=== PATIENT | female | born 1970 | race Caucasian/White ===

== ENCOUNTER 2019-05-03 09:26 | Emergency (ER) | payer OTHER ==
[~2019-05-03] VITALS: Wt 72.0 kg
[2019-05-03 09:30] VITALS: BP 125/64; PULSE 71; RESP 18; Wt 72.0 kg
--- NOTE | 2019-05-03 10:26 | ERD ---
ER Documentation Chief Complaint Chief Complaint POST OP PAIN FOLLOWING BREAST AUGMENTATION SURG 04/23/19 HPI Patient is a 48-year-old female, who presents to the ER for concerns of wound w ound check after breast augmentation surgery as well as abdominal and thigh liposuction on 04-23-19. [facility] Patient states she had a drainage site in her back. No drainage tube was placed, patient only had an incision in her back. Patient states she was told by her surgeon Rosalio to "push on my stomach" which would allow for abdominal fluid to "drain out" of back incision. Patient states the back incision has closed up thus she is requesting that it be opened up here in the ER. Patient states she feels as if she is bloated. Patient denies pulling any drooling tubes or having any tubes placed. Patient denies any fevers, chills, nausea, vomiting, chest pain, shortness of breath or changes in bowel movement. Patient states her pain is controlled. ROS All systems reviewed and are negative except as per history of present illness. FmHx Family History: No diabetes Physical Exam Vitals Vital Signs Date Temp Pulse Resp B/P (MAP) Pulse Ox O2 O2 Flow FiO2 Time Delivery Rate 05/03/19 98.1 71 18 125/64 99 09:30 (84) Physical Exam GENERAL: Well-developed, well-nourished female. Appears in no acute distress. Speaking full sentences. HEAD: Normocephalic, atraumatic. EYES: Pupils are equally reactive bilaterally. EOMs grossly intact. No conjunctival erythema. ENT: Moist mucous membranes. No uvula deviation. No kissing tonsils. BREAST: Dressings in place. Dressings are clear clean and dry. NECK: Supple. No meningismus. Normal range of motion of the neck. LUNG: Clear to auscultation bilaterally. No rhonchi, wheezing, rales or coarse breath sounds. HEART: Regular rate and rhythm. No murmurs, rubs or gallops. ABDOMEN: Soft, nondistended. Nontender to palpation in all 4 quadrants. EXTREMITIES: Equal pulses bilaterally. No peripheral clubbing, cyanosis or edema. No unilateral leg swelling. NEUROLOGIC: Alert and oriented. Moving all four extremities without any difficulty. Normal speech. Steady gait. SKIN: Closed incision noted on the patient's back. No surrounding erythema, war mth, swelling. Procedures/MDM MEDICAL DECISION MAKING: Patient is a 48-year-old female who presents the ER for concerns of bloating after undergoing breast augmentation surgery as well as liposuction on 04-23-19.. Vital signs were reviewed. Patient is afebrile. Patient was not hypoxic. Patient was hemodynamically stable. Patient is requesting that her back incision be opened up to allow for her bloating to be drained. I explained to the patient that this is not the standard practice here in the [facility]. Patient was advised to follow-up with her surgeon in [place] for any additional surgeries or procedures. Patient states she has a follow-up appointment next week. Patient has no fevers or chills. Low suspicion for deep space infection or sepsis. DISCHARGE: At this time, patient is stable for discharge and outpatient management. I have instructed the patient to follow-up with his/her primary care physician in 1-2 days. I have discussed with the patient the possibility of needing to see a specialist for further workup and imaging studies if symptoms persist. I have instructed the patient to promptly return to the ER for any new or worsening symptoms including increased pain, fever, nausea, vomiting, weakness or LOC. The patient and/or family expressed understanding of and agreement with this plan. All questions were answered. Home care instructions were provided. Disclaimer: Inadvertent spelling and grammatical errors are likely due to EHR/dictation software use and do not reflect on the overall quality of patient care. Also, please note that the electronic time recorded on this note does not necessarily reflect the actual time of the patient encounter. Departure Diagnosis: Primary Impression: Encounter for postoperative wound check Condition: Fair Patient Instructions: Post Op Wound Check, General Referrals: [facility] YOU HAVE RECEIVED A MEDICAL SCREENING EXAM AND THE RESULTS INDICATE THAT YOU DO NOT HAVE A CONDITION THAT REQUIRES URGENT TREATMENT IN THE EMERGENCY DEPARTMENT. FURTHER EVALUATION AND TREATMENT OF YOUR CONDITION CAN WAIT UNTIL YOU ARE SEEN IN YOUR DOCTORS OFFICE WITHIN THE NEXT 1-2 DAYS. IT IS YOUR RESPONSIBILITY TO MAKE AN APPOINTMENT FOR FOLOW-UP CARE. IF YOU HAVE A PRIMARY DOCTOR --you should call your primary doctor and schedule an appointment IF YOU DO NOT HAVE A PRIMARY DOCTOR YOU CAN CALL OUR PHYSICIAN REFERRAL HOTLINE AT IF YOU CAN NOT AFFORD TO SEE A PHYSICIAN YOU CAN CHOSE FROM THE [facility] [address] [place] [facility] [address] [facility] [address] [facility] [address] [facility] [address] [facility]. [facility]. [address] [facility]. [facility] YOU HAVE RECEIVED A MEDICAL SCREENING EXAM AND THE RESULTS INDICATE THAT YOU DO NOT HAVE A CONDITION THAT REQUIRES URGENT TREATMENT IN THE EMERGENCY DEPARTMENT. FURTHER EVALUATION AND TREATMENT OF YOUR CONDITION CAN WAIT UNTIL YOU ARE SEEN IN YOUR DOCTORS OFFICE WITHIN THE NEXT 1-2 DAYS. IT IS YOUR RESPONSIBILITY TO MAKE AN APPOINTMENT FOR FOLOW-UP CARE. IF YOU HAVE A PRIMARY DOCTOR --you should call your primary doctor and schedule and appointment IF YOU DO NOT HAVE A PRIMARY DOCTOR YOU CAN CALL OUR PHYSICIAN REFERRAL HOTLINE AT . IF YOU CAN NOT AFFORD TO SEE A PHYSICIAN YOU CAN CHOSE FROM THE FOLLOWING [facility] INSTITUTIONS: [facility] [address] [place] [address] [facility] [address] [place] [address] [facility] [address] [place] [address] Additional Instructions: Call your primary care doctor TOMORROW for an appointment during the next 1-2 days.See the doctor sooner or return here if your condition worsens before your appointment time. KATIE JUDD PA-C May 03, 2019 10:26
== END 2019-05-03 11:29 | disposition home or self-care (01) ==
LOC: E/R 09:26 → FTE 11:29
DX: Z48.01 Encounter for change or removal of surgical wound dressing (principal)
CPT/HCPCS: 99281